=== PATIENT | female | born 1945 | race Caucasian/White ===

== ENCOUNTER 2021-02-20 07:40 | Outpatient (CLI) | payer MEDICARE, BC | END 2021-02-20 07:41 | disposition home or self-care (01) | LOC: NM 07:40 | PROVIDERS: ATTEND Internal Medicine Gastroenterology | DX: R10.10 Upper abdominal pain, unspecified (principal); R11.2 Nausea with vomiting, unspecified | CPT/HCPCS: 78227; A9537 ==

== ENCOUNTER 2021-07-16 08:08 | Outpatient (CLI) | payer MEDICARE, BC | END 2021-07-16 08:09 | disposition home or self-care (01) | LOC: RAD 08:08 | PROVIDERS: ATTEND Internal Medicine | DX: R51.9 Headache, unspecified (principal); R11.2 Nausea with vomiting, unspecified; I67.82 Cerebral ischemia | CPT/HCPCS: 70470; 74246; 82565 ==

== ENCOUNTER 2021-08-18 08:11 | Outpatient (CLI) | payer MEDICARE, BC | END 2021-08-18 08:12 | disposition home or self-care (01) | LOC: NM 08:11 | PROVIDERS: ATTEND Internal Medicine Gastroenterology | DX: R11.2 Nausea with vomiting, unspecified (principal); R10.10 Upper abdominal pain, unspecified | CPT/HCPCS: 78264; A9541 ==

== ENCOUNTER 2023-07-14 14:23 | Outpatient (CLI) | payer MEDICARE, BC ==
[2023-07-14 16:19] LABS: #Basophils 0.1 10x3/uL (0.0-0.2); #Eosinphils 0.1 10x3/uL (0.0-0.5); #Monocytes 1.1 10x3/uL (0.0-1.1); #Neutrophils 4.6 10x3/uL (1.5-8.4); %Basophils 1.1 % (0.0-2.0); %Eosinophils 1.8 % (0.0-6.0); %Lymphocytes 25.2 % (18.0-47.0); %Monocytes 13.7 % (0.0-10.0); %Neutrophils 57.8 % (40.0-75.0); Hematocrit 41.4 % (34.9-44.5); Hemoglobin 13.2 g/dL (12.0-15.5); Mean Corpuscular HGB CONC 31.9 g/dL (32.0-36.0); Mean Corpuscular Hemoglobin 32.3 pg (27.0-33.0); Mean Corpuscular Volume 101.2 fl (81.6-98.3); Mean Platelet Volume 9.2 fl (7.4-10.4); Platelet Count 356 10x3/uL (150-450); RBC Distribution Width 15.3 % (11.5-14.5); Red Blood Cell (RBC) Count 4.09 10x6/uL (3.90-5.03); White Blood Cell (WBC) Count 7.9 10x3/uL (3.5-10.5)
[2023-07-14 16:22] LABS: Prothrombin Time 10.3 sec (9.5-12.1)
[2023-07-14 16:27] LABS: Anion Gap 14 mmol/L (10-20); BUN (Urea Nitrogen) 18 mg/dL (9.8-20.1); Calc. Creatinine Clearance 0 mL/min (70-130); Calcium 9.5 mg/dL (7.8-10.44); Carbon Dioxide 25 mmol/L (23-31); Chloride 106 mmol/L (98-107); Estimated GFR 70; Glucose 89 mg/dL (83-110); Sodium 141 mmol/L (136-145)
== END 2023-07-14 14:24 | disposition home or self-care (01) ==
LOC: LABBT 14:23
PROVIDERS: ATTEND Orthopaedic Surgery
DX: Z01.818 Encounter for other preprocedural examination (principal); M17.11 Unilateral primary osteoarthritis, right knee
CPT/HCPCS: 80048; 85025; 85610; 87081; 93005; 93010

== ENCOUNTER 2023-07-18 05:45 | Observation (INO) | payer MEDICARE, BC ==
[2023-07-14 15:20] VITALS: BMI 25.8
[2023-07-18] MEDS ORDERED: Midazolam HCl 2 mg/2 ml Vial ONE ×2 (06:25→07:06)
[2023-07-18] MEDS ORDERED: fentaNYL 50 mcg/mL 1 mL Vial ONE (06:25)
[2023-07-18] MEDS ORDERED: Lidocaine 1% (PF) 30 ML VIAL ONE (06:25)
[2023-07-18] MEDS ORDERED: Sodium Chloride 0.9% 100 ML ONE ×2 (06:50→06:53)
[2023-07-18] MEDS ORDERED: Tranexamic Acid 1,000 MG/10 ML VIAL ONE (06:50)
[2023-07-18] MEDS ORDERED: Vancomycin 1 GM/200 ML (FROZEN) BAG ONE (06:50)
[2023-07-18] MEDS ORDERED: CEFAZOLIN 2 GM VIAL ONE (06:53)
[2023-07-18] MEDS ORDERED: Bupivacaine PF 0.5% 30 ML VIAL ONE ×2 (06:53→08:01)
[2023-07-18] MEDS ORDERED: Acetaminophen 325 MG TAB PO PRN (06:54)
[2023-07-18] MEDS ORDERED: diphenhydrAMINE 25 MG CAP PO PRN (06:54)
[2023-07-18] MEDS ORDERED: Zolpidem Tartrate 5 MG TAB PO PRN ×2 (06:54→07:30)
[2023-07-18] MEDS ORDERED: fentaNYL 50 mcg/mL 1 mL Vial SLOW IVP PRN ×2 (06:54→07:19)
[2023-07-18] MEDS ORDERED: Promethazine HCl 25 MG/ML VIAL IM PRN ×2 (06:54→07:30)
[2023-07-18] MEDS ORDERED: Ondansetron PF 4 MG/2 ML Vial IVP PRN ×2 (06:54→07:30)
[2023-07-18] MEDS ORDERED: HYDROcodone/Acetaminophen 10/325 mg Tablet PO PRN ×3 (06:54→07:30)
[2023-07-18] MEDS ORDERED: Bupivacaine HCl 0.5%/Epinephrine 1:200,000/PF 30 ml Vial ONE (06:55)
[2023-07-18] MEDS ORDERED: Methotrexate Sodium 2.5 MG TAB PO SCH (07:00)
[2023-07-18] MEDS ORDERED: fentaNYL PF 100 MCG/2 ML SYRINGE ONE (07:06)
[2023-07-18] MEDS ORDERED: Propofol 1,000 MG/100 ML VIAL IV ONE (07:07)
[2023-07-18] MEDS ORDERED: Phenylephrine 40 MG/NS 250 ML 250 ML ONE (07:08)
[2023-07-18] MEDS ORDERED: Ropivacaine 0.2% 550 ML 550 ML NERVE BLCK SCH (07:30)
[2023-07-18] MEDS ORDERED: Non-Formulary Item 1 EACH (Multivitamin [Multivitamin] 1 EACH Tablet) PO SCH (09:00)
[2023-07-18] MEDS: Calcium Carbonate 600 MG TAB PO SCH (09:00)
[2023-07-18] MEDS: Folic Acid 1 MG TAB PO SCH (09:00)
[2023-07-18] MEDS ORDERED: Aspirin 81 mg Enteric Coated Tablet PO SCH (09:00)
[2023-07-18] MEDS: Aspirin 81 mg Enteric Coated Tablet PO SCH ×2 (09:00→21:08)
[2023-07-18] MEDS: Sodium Chloride 0.9% 1,000 ML IV SCH ×2 (09:45→13:40)
[2023-07-18] MEDS: Ketorolac Tromethamine 30 MG/ML VIAL IVP SCH ×3 (11:41→23:28)
[2023-07-18] MEDS: traMADol HCl 50 MG TAB PO PRN ×2 (13:35→21:13)
[2023-07-18] MEDS ORDERED: Ketorolac Tromethamine 30 MG/ML VIAL IVP SCH (14:00)
[2023-07-18] MEDS: CEFAZOLIN 2 GM in Sodium Chloride 0.9% 100 ML IVPB SCH ×2 (14:21→23:28)
[2023-07-18] MEDS: Atorvastatin Calcium 10 MG TAB PO SCH (21:08)
[2023-07-18] MEDS: Ezetimibe 10 MG TAB PO SCH ×2 (21:08→21:22)
[2023-07-19] MEDS: HYDROcodone/Acetaminophen 10/325 mg Tablet PO PRN ×4 (00:12→21:07)
[2023-07-19] MEDS: Sodium Chloride 0.9% 1,000 ML IV SCH ×3 (03:25→23:49)
[2023-07-19] MEDS: Levothyroxine Sodium 100 MCG TAB PO SCH (04:57)
[2023-07-19] MEDS: traMADol HCl 50 MG TAB PO PRN ×3 (04:57→18:32)
[2023-07-19] MEDS: Ketorolac Tromethamine 30 MG/ML VIAL IVP SCH ×4 (04:58→23:50)
[2023-07-19 05:06] LABS: Hematocrit 34.6 % (36.0-47.0); Hemoglobin 11.1 g/dL (12.0-16.0); Mean Corpuscular HGB CONC 32.1 g/dL (32.0-36.0); Mean Corpuscular Hemoglobin 32.5 pg (27.0-31.0); Mean Corpuscular Volume 101.2 fl (78.0-98.0); Mean Platelet Volume 9.1 fL (7.4-10.4); Platelet Count 271 10x3/uL (130-400); RBC Distribution Width 15.3 % (11.5-14.5); Red Blood Cell (RBC) Count 3.42 mill/uL (4.20-5.40); White Blood Cell (WBC) Count 8.1 10x3/uL (4.8-10.8)
[2023-07-19] MEDS: Ferrous Gluconate 324 MG TAB PO SCH ×2 (08:59→21:07)
[2023-07-19] MEDS: Aspirin 81 mg Enteric Coated Tablet PO SCH ×2 (08:59→21:06)
[2023-07-19] MEDS: Multivitamin W/ Minerals 1 TAB PO SCH (08:59)
[2023-07-19] MEDS: Folic Acid 1 MG TAB PO SCH (08:59)
[2023-07-19] MEDS: Senokot S 8.6-50 MG TAB PO SCH ×2 (08:59→21:06)
[2023-07-19] MEDS: Calcium Carbonate 600 MG TAB PO SCH (08:59)
[2023-07-19] MEDS: Ezetimibe 10 MG TAB PO SCH (21:07)
[2023-07-19] MEDS: Atorvastatin Calcium 10 MG TAB PO SCH (21:08)
[2023-07-20] MEDS: Levothyroxine Sodium 100 MCG TAB PO SCH (05:47)
[2023-07-20] MEDS: Ketorolac Tromethamine 30 MG/ML VIAL IVP SCH (05:48)
[2023-07-20 05:59] VITALS: TEMP 98.1
[2023-07-20 08:08] VITALS: BP 130/66
[2023-07-20] MEDS: Calcium Carbonate 600 MG TAB PO SCH (08:17)
[2023-07-20] MEDS: traMADol HCl 50 MG TAB PO PRN (08:17)
[2023-07-20] MEDS: Senokot S 8.6-50 MG TAB PO SCH (08:17)
[2023-07-20] MEDS: Ferrous Gluconate 324 MG TAB PO SCH (08:17)
[2023-07-20] MEDS: Aspirin 81 mg Enteric Coated Tablet PO SCH (08:17)
[2023-07-20] MEDS: Folic Acid 1 MG TAB PO SCH (08:17)
[2023-07-20] MEDS: Multivitamin W/ Minerals 1 TAB PO SCH (08:17)
[2023-07-20] MEDS: Sodium Chloride 0.9% 1,000 ML IV SCH (08:18)
[2023-07-20] MEDS ORDERED: Methotrexate Sodium 2.5 MG TAB PO SCH (09:00)
[2023-07-20] MEDS: HYDROcodone/Acetaminophen 10/325 mg Tablet PO PRN (10:37)
== END 2023-07-20 11:50 | disposition home or self-care (01) ==
LOC: SDC 05:45 → SURG B 10:53 → SDC 10:57
PROVIDERS: ADMIT Orthopaedic Surgery; ATTEND Orthopaedic Surgery
PROC: 0SRC0JZ Replacement of Right Knee Joint with Synthetic Substitute, Open Approach (ICD-10-PCS; principal; 2023-07-18)
DX: M17.11 Unilateral primary osteoarthritis, right knee (principal); M17.12 Unilateral primary osteoarthritis, left knee; M06.9 Rheumatoid arthritis, unspecified; E03.9 Hypothyroidism, unspecified; I25.2 Old myocardial infarction; Z90.89 Acquired absence of other organs; Z88.1 Allergy status to other antibiotic agents; Z88.8 Allergy status to other drugs, medicaments and biological substances; Z91.041 Radiographic dye allergy status
CPT/HCPCS: 27447; 73560; 85027; 97110 ×3; 97116 ×3; 97530 ×3; 97535; A4306; C1776; J3010; J3370; 36416; J1885; J2001; J2250; J2704; J2795; J3490; J7050; J8610; S0020

== ENCOUNTER 2024-09-20 13:16 | Outpatient (CLI) | payer MEDICARE | END 2024-09-20 13:17 | disposition home or self-care (01) | LOC: BICMAMMO 13:16 | PROVIDERS: ATTEND Internal Medicine | DX: M81.0 Age-related osteoporosis without current pathological fracture (principal); M85.851 Other specified disorders of bone density and structure, right thigh | CPT/HCPCS: 77080 ==